=== PATIENT | male | born 1990 | race Caucasian/White ===

== ENCOUNTER 2017-01-16 19:30 | Emergency (ER) | payer OTHER ==
[2017-01-16 19:36] VITALS: BP 117/69; PULSE 100; RESP 16; TEMP 98.4; O2SAT 94
--- NOTE | 2017-01-16 19:52 | EDPHY ---
H & P Stated Complaint: L leg injury from snowboarding fall Time Seen by Provider: 01/16/17 19:46 HPI/ROS: Chief complaint: Left leg injury History of present illness: 26-year-old male presents to the emergency department for a left leg injury. Patient was snowboarding earlier today when he fell. Since then he has had pain to the left upper leg. Above the knee. Patient states it is painful to walk. He feels like his leg is going to give out on him. He denies other associated signs or symptoms: No report of open wounds, no paresthesias or abnormal coolness to the leg. No report of trauma to other parts of the body. - Personal History Current Tetanus/Diphtheria Vaccine: Unsure Current Tetanus Diphtheria and Acellular Pertussis (TDAP): Unsure - Medical/Surgical History Hx Asthma: No Hx Chronic Respiratory Disease: No Hx Diabetes: No Hx Cardiac Disease: No Hx Renal Disease: No Hx Cirrhosis: No Hx Alcoholism: No Hx HIV/AIDS: No Hx Splenectomy or Spleen Trauma: No Other PMH: shoulder surgery, appy, - Social History Smoking Status: Never smoked - Physical Exam Exam: General: Alert, nontoxic Skin: Contusion to the left lateral thigh. No open wounds. Musculoskeletal: Mild tenderness left lateral thigh. Muscle compartments are soft. Patient is moving the left hip, left knee, left ankle and digits of the left foot without difficulty. Vascular: DP and PT pulses 2+. Neurologic: Sensation intact in the left lower extremity. Constitutional: Initial Vital Signs Temperature (C) 36.9 C 01/16/17 19:34 Heart Rate 100 01/16/17 19:34 Respiratory Rate 16 01/16/17 19:34 Blood Pressure 117/69 01/16/17 19:34 O2 Sat (%) 94 01/16/17 19:34 O2 Delivery Mode Room Air Allergies/Adverse Reactions: No Known Allergies Allergy (Unverified 01/16/17 19:36) Home Medications: Medication Instructions Recorded NK [No Known Home Meds] 01/16/17 Medical Decision Making - Diagnostics Imaging: Imaging Impressions Femur X-Ray 01/16/17 19:50 Impression: No acute osseous findings. ED Course/Re-evaluation: Patient seen under the supervision of my secondary supervising physician Dr. Jovany Murguia. Patient presents to the emergency department for left thigh injury. The leg is neurovascularly intact. X-ray is negative. This appears to be contusion versus sprain/strain. She had appreciate evidence of compartment syndrome. Joints are not involved including knee joint. Patient will be placed on crutches. Discharged home. Home care is discussed. She is asked to follow up with Orthopedics for recheck. Return precautions are given. Patient voiced understanding and agreement with plan. Differential Diagnosis: Included but not limited to contusion, sprain or strain, bony fracture, unlikely compartment syndrome Departure - Departure Disposition: Home, Routine, Self-Care Clinical Impression: Leg strain Condition: Good Instructions: Muscle Strain (ED) Additional Instructions: Follow-up with orthopedics for continued evaluation and care Use ibuprofen 600 mg 3 times a day for the next 2-3 days for symptom control If symptoms worsen or new symptoms develop return to the emergency room for recheck Referrals: DR LIZZIE [Other] - As per Instructions Mana Carrion MD [Medical Doctor] - As per Instructions
== END 2017-01-16 20:53 | disposition home or self-care (01) ==
DX: S86.912A Strain of unspecified muscle(s) and tendon(s) at lower leg level, left leg, initial encounter (principal); V00.311A Fall from snowboard, initial encounter; Y99.8 Other external cause status; Y93.23 Activity, snow (alpine) (downhill) skiing, snowboarding, sledding, tobogganing and snow tubing

== ENCOUNTER → 2017-10-15 | Outpatient (CLI) | payer OTHER | LOC: CIMAGING 18:11 | PROVIDERS: ATTEND Physician Assistant Medical | DX: M25.512 Pain in left shoulder (principal) | CPT/HCPCS: 73030-PO ==